=== PATIENT | male | born 1965 | race African-American/Black ===

== ENCOUNTER 2016-10-25 15:15 | Inpatient (IN) | payer OTHER ==
[~2016-10-25] VITALS: Ht 162.6 cm; Wt 70.5 kg
[2016-10-25 15:35] VITALS: BP 148/91; TEMP 98
[2016-10-25] MEDS ORDERED: LIPITOR20 MG PO (15:37)
[2016-10-25] MEDS ORDERED: METFORMIN ER1000 MG PO (15:37)
[2016-10-25 16:45] LABS: PLATELET COUNT 265 K/uL (142-355)
[2016-10-25 16:55] LABS: POTASSIUM 4.6 mmol/L (3.6-5.2)
[2016-10-25 17:05] LABS: SODIUM 117 mmol/L (136-145)
[2016-10-25 20:00] VITALS: BP 129/86; TEMP 98
[2016-10-25 21:00] VITALS: BP 118/79
[2016-10-25 22:00] VITALS: BP 118/83
[2016-10-25 23:00] VITALS: BP 130/96
[2016-10-26] VITALS (15 sets, daily range): BP systolic 91–154; BP diastolic 61–104; TEMP 97.4–98.9; Ht 162.6 cm; Wt 70.5 kg
[2016-10-26 00:47] LABS: POTASSIUM 3.4 mmol/L (3.6-5.2); SODIUM 135 mmol/L (136-145)
[2016-10-26 05:39] LABS: PLATELET COUNT 258 K/uL (142-355)
[2016-10-26 05:57] LABS: POTASSIUM 3.4 mmol/L (3.6-5.2); SODIUM 140 mmol/L (136-145)
[2016-10-27 04:00] VITALS: BP 119/79; TEMP 98.9
[2016-10-27 04:50] LABS: PLATELET COUNT 244 K/uL (142-355)
[2016-10-27 05:09] LABS: POTASSIUM 3.9 mmol/L (3.6-5.2); SODIUM 139 mmol/L (136-145)
[2016-10-27 08:00] VITALS: BP 129/77; TEMP 97.6
[2016-10-27 12:00] VITALS: BP 116/70; TEMP 99.3
[2016-10-27 16:00] VITALS: BP 124/76; TEMP 98.8
[2016-10-27 20:21] VITALS: BP 127/82; TEMP 99
[2016-10-28] VITALS: BP 114/71; TEMP 98
[2016-10-28 04:00] VITALS: BP 115/71; TEMP 97.6
[2016-10-28 04:41] LABS: PLATELET COUNT 251 K/uL (142-355)
[2016-10-28 04:57] LABS: POTASSIUM 3.4 mmol/L (3.6-5.2); SODIUM 136 mmol/L (136-145)
[2016-10-28 08:01] VITALS: BP 109/70; TEMP 98.3
[2016-10-28 12:00] VITALS: BP 123/76; TEMP 97.7
[2016-10-28 16:00] VITALS: BP 126/80; TEMP 98.7
[2016-10-28 20:00] VITALS: BP 138/89; TEMP 98.3
[2016-10-29 00:14] VITALS: BP 119/72; TEMP 98.1
[2016-10-29 04:00] VITALS: BP 121/61; TEMP 97.8
[2016-10-29 05:23] LABS: PLATELET COUNT 251 K/uL (142-355)
[2016-10-29 05:40] LABS: POTASSIUM 3.2 mmol/L (3.6-5.2); SODIUM 136 mmol/L (136-145)
[2016-10-29 07:59] VITALS: BP 100/73; TEMP 97.6
[2016-10-29 12:00] VITALS: BP 115/85; TEMP 98.1
[2016-10-29 16:00] VITALS: BP 126/80; TEMP 98.2
[2016-10-29 20:22] VITALS: BP 140/82; TEMP 98.5
[2016-10-30] VITALS: BP 122/76; TEMP 98.3
[2016-10-30 04:00] VITALS: BP 112/65; TEMP 97.7
[2016-10-30 05:21] LABS: PLATELET COUNT 248 K/uL (142-355)
[2016-10-30 05:42] LABS: POTASSIUM 3.4 mmol/L (3.6-5.2); SODIUM 135 mmol/L (136-145)
[2016-10-30 08:16] VITALS: BP 169/88; TEMP 98.3
[2016-10-30 12:00] VITALS: BP 108/68; TEMP 97.6
[2016-10-30 16:00] VITALS: BP 108/68; TEMP 97.6
== END 2016-10-30 16:00 | disposition home or self-care (01) | DRG 638 ==
LOC: ED 15:15 → ICU 17:40 → MED/SURG 10-26 16:37
PROVIDERS: Emergency Medicine
DX: E11.00 Type 2 diabetes mellitus with hyperosmolarity without nonketotic hyperglycemic-hyperosmolar coma (NKHHC) (principal); E87.1 Hypo-osmolality and hyponatremia; Z91.14 Patient's other noncompliance with medication regimen; R10.84 Generalized abdominal pain; E78.4 Other hyperlipidemia; M62.838 Other muscle spasm; E87.6 Hypokalemia
CPT/HCPCS: 36415; 36600; 80048; 80053; 80307; 81000; 81002; 82805; 82947; 82948; 82962; 83036; 83735; 84100; 85027; 85379; 93005; 96361; 96372; 96374; 99284; G0479; J1650; J1815; J1885; J1940; J2175; J2550; J3475; J3490; Q9963